=== PATIENT | female | born 1990 | race African-American/Black ===

== ENCOUNTER → 2019-05-25 | Emergency (ER) | payer BC ==
[~2019-05-25] VITALS: Ht 162.6 cm; Wt 86.2 kg
[~2019-05-25] MED LIST: ALEVE220 M1 PO; CITRATE OF MAG296 ML PO; COLACE 100 MG100 MG PO; IBUPROFEN 200200 M1 PO; NORCO 5-325 TA1 EACH PO; NUVARING VAG; RANITIDINE PO; TRILEPTAL150 MG PO
[2019-05-25 14:18] VITALS: BP 140/85
--- NOTE | 2019-05-25 16:32 | EKG ---
[facility] [place] [address] ELECTROCARDIOGRAM REPORT Name: ISMAELJAMIE Room #: [facility].#: [id number] Admission: Attend Phys: Discharge: Date of : 89 Report #: [id number] THIS REPORT FOR: cc: Kristi Monae MD, Luis F. MD ~ THIS REPORT FOR: //name// [facility] ED Test Date: 2019-05-25 Test Time: 14:12:59 Pat Name: JAMIE GUEVARA Department: Room: Gender: F Lime Puller: DAMARI : 1990 Requested By: Tony Thornton Order Number: [id number] MD: Ted Barba Measurements Intervals [place] Rate: 89 P: 40 MS: 129 QRS: 17 QRSD: 103 T: 30 QT: 361 QTc: 440 Interpretive Statements Sinus rhythm Baseline wander in lead(s) V5,V6 No previous ECG available for comparison Electronically Signed On 05-25-2019 16:31:44 DIRECTOR OF SEARCH ENGINE MARKETING by Ted Barba [email or web address] <ELECTRONICALLY SIGNED> By: Ted Barba MD 05/25/19 1631 1412 11 Ted Barba MD /HOA
== END ==
LOC: ER 14:04
DX: G56.01 Carpal tunnel syndrome, right upper limb (principal)